=== PATIENT | female | born 1955 ===

== ENCOUNTER 2024-01-02 06:35 | Observation (INO) | payer MEDICARE, OTHER ==
[2024-01-02] MEDS ORDERED: Ondansetron PF 4 MG/2 ML Vial ONE (08:03)
[2024-01-02] MEDS ORDERED: Famotidine/PF 20 mg/2ml Vial ONE (08:04)
[2024-01-02] MEDS ORDERED: Ketorolac Tromethamine 30 MG (1 mL) VIAL ONE (08:04)
[2024-01-02 08:13] LABS: #Monocytes 0.8 10x3/uL (0.0-1.1); %Basophils 0.3 % (0.0-2.0); %Eosinophils 0.1 % (0.0-6.0); %Lymphocytes 8.1 % (18.0-47.0); %Monocytes 7.3 % (0.0-10.0); %Neutrophils 83.9 % (40.0-75.0); Mean Corpuscular HGB CONC 33.3 g/dL (32.0-36.0); Mean Corpuscular Hemoglobin 28.8 pg (27.0-33.0); Mean Corpuscular Volume 86.5 fl (81.6-98.3); Mean Platelet Volume 10.3 fl (7.4-10.4); Platelet Count 283 10x3/uL (150-450); RBC Distribution Width 12.2 % (11.5-14.5); Red Blood Cell (RBC) Count 5.55 10x6/uL (3.90-5.03); White Blood Cell (WBC) Count 10.7 10x3/uL (3.5-10.5)
[2024-01-02 08:29] LABS: ALT (SGPT) 479 U/L (8-55); AST (SGOT) 267 U/L (5-34); Albumin 4.6 g/dL (3.4-4.8); Alkaline Phosphatase 147 U/L (40-110); Anion Gap 17 mmol/L (10-20); BUN (Urea Nitrogen) 13 mg/dL (9.8-20.1); Calc. Creatinine Clearance 0 mL/min (70-130); Calcium 9.6 mg/dL (7.8-10.44); Carbon Dioxide 24 mmol/L (23-31); Chloride 105 mmol/L (98-107); Estimated GFR 85; Globulin 2.6 g/dL (2.4-3.5); Glucose 127 mg/dL (80-115); Potassium 3.9 mmol/L (3.5-5.1); Protein, Total 7.2 g/dL (5.8-8.1); Sodium 142 mmol/L (136-145)
[2024-01-02 09:00] LABS: Lipase 10341 U/L (8-78)
[2024-01-02] MEDS ORDERED: Piperacillin/Tazobactam 4.5 GM VIAL ONE (09:00)
[2024-01-02] MEDS ORDERED: Morphine 4 MG/ML VIAL ONE (09:38)
[2024-01-02] MEDS ORDERED: Ondansetron PF 4 MG/2 ML Vial IVP PRN (09:39)
[2024-01-02] MEDS ORDERED: Ondansetron ODT 4 MG TAB PO PRN (09:39)
[2024-01-02] MEDS ORDERED: Morphine 4 MG/ML VIAL SLOW IVP PRN (09:44)
[2024-01-02 11:21] LABS: Bilirubin Neg (Negative); Blood, Urine Negative (Negative); Clarity Clear (Clear); Glucose, Urine (Dipstick) Normal (Negative); Ketone, Urine 5 mg/dL (Negative); Leukocyte Negative (Negative); Nitrite Negative (Negative); Protein, Urine (Dipstick) Negative (Neg-Trace); Urobilinogen Normal mg/dL (Less than 2)
[2024-01-02 11:31] LABS: Bacteria/HPF Rare-Few HPF (None Seen); CAUTI Indications for Culture Pelvic or flank pain; RBC/HPF None Seen HPF (0-3); Squamous Epithelial 0-3 HPF (0-3); Urine Culture Reflex No No; WBC/HPF 0-3 HPF (0-3)
[2024-01-02] MEDS ORDERED: Piperacillin/Tazobactam 3.375 GM VIAL ONE (13:15)
[2024-01-02] MEDS: Piperacillin/Tazobactam 3.375 GM in Sodium Chloride 0.9% 100 ML IVPB SCH (13:22)
[2024-01-02] MEDS: Sodium Chloride 0.9% 1,000 ML IV SCH ×2 (16:09→16:27)
[2024-01-02 16:11] VITALS: BMI 29.4
[2024-01-02] MEDS: Acetaminophen 325 MG TAB PO PRN (21:04)
[2024-01-02] MEDS: FLU VACC QS2023(65UP)/MF59C/PF 60 MCG/0.5 ML SYRINGE IM ONE (21:17)
[2024-01-03 06:07] LABS: #Eosinphils 0.2 10x3/uL (0.0-0.5); #Monocytes 0.7 10x3/uL (0.0-1.1); #Neutrophils 3.7 10x3/uL (1.5-8.4); %Basophils 0.5 % (0.0-2.0); %Eosinophils 3.6 % (0.0-6.0); %Lymphocytes 25.8 % (18.0-47.0); %Monocytes 11.4 % (0.0-10.0); %Neutrophils 58.4 % (40.0-75.0); Hemoglobin 12.9 g/dL (12.0-15.5); Mean Corpuscular HGB CONC 33.1 g/dL (32.0-36.0); Mean Corpuscular Hemoglobin 28.8 pg (27.0-33.0); Mean Corpuscular Volume 87.1 fl (81.6-98.3); Mean Platelet Volume 10.6 fl (7.4-10.4); Platelet Count 207 10x3/uL (150-450); RBC Distribution Width 12.5 % (11.5-14.5); Red Blood Cell (RBC) Count 4.48 10x6/uL (3.90-5.03); White Blood Cell (WBC) Count 6.4 10x3/uL (3.5-10.5)
[2024-01-03 06:31] LABS: ALT (SGPT) 282 U/L (8-55); AST (SGOT) 96 U/L (5-34); Albumin 3.3 g/dL (3.4-4.8); Alkaline Phosphatase 107 U/L (40-110); Anion Gap 11 mmol/L (10-20); BUN (Urea Nitrogen) 12 mg/dL (9.8-20.1); Bilirubin, Total 1.1 mg/dL (0.2-1.2); Calc. Creatinine Clearance 100 mL/min (70-130); Calcium 8.1 mg/dL (7.8-10.44); Carbon Dioxide 23 mmol/L (23-31); Chloride 114 mmol/L (98-107); Estimated GFR 94; Glucose 84 mg/dL (80-115); Lipase 617 U/L (8-78); Potassium 3.6 mmol/L (3.5-5.1); Protein, Total 5.3 g/dL (5.8-8.1); Sodium 144 mmol/L (136-145)
[2024-01-03] MEDS: Scopolamine 1 mg/72 hour Patch TD SCH (20:31)
[2024-01-04 05:31] LABS: #Eosinphils 0.2 10x3/uL (0.0-0.5); #Monocytes 0.8 10x3/uL (0.0-1.1); #Neutrophils 5.7 10x3/uL (1.5-8.4); %Basophils 0.4 % (0.0-2.0); %Eosinophils 2.8 % (0.0-6.0); %Lymphocytes 16.2 % (18.0-47.0); %Monocytes 9.6 % (0.0-10.0); %Neutrophils 70.4 % (40.0-75.0); Hemoglobin 13.7 g/dL (12.0-15.5); Mean Corpuscular HGB CONC 35.1 g/dL (32.0-36.0); Mean Corpuscular Volume 85.3 fl (81.6-98.3); Mean Platelet Volume 10.2 fl (7.4-10.4); Platelet Count 214 10x3/uL (150-450); RBC Distribution Width 12.5 % (11.5-14.5); Red Blood Cell (RBC) Count 4.57 10x6/uL (3.90-5.03); White Blood Cell (WBC) Count 8.1 10x3/uL (3.5-10.5)
[2024-01-04 05:41] LABS: ALT (SGPT) 212 U/L (8-55); AST (SGOT) 48 U/L (5-34); Albumin 3.5 g/dL (3.4-4.8); Alkaline Phosphatase 110 U/L (40-110); Anion Gap 10 mmol/L (10-20); BUN (Urea Nitrogen) 8 mg/dL (9.8-20.1); Bilirubin, Total 0.9 mg/dL (0.2-1.2); Calc. Creatinine Clearance 113 mL/min (70-130); Calcium 8.2 mg/dL (7.8-10.44); Carbon Dioxide 23 mmol/L (23-31); Chloride 113 mmol/L (98-107); Estimated GFR 96; Globulin 2.1 g/dL (2.4-3.5); Glucose 100 mg/dL (80-115); Lipase 92 U/L (8-78); Potassium 3.2 mmol/L (3.5-5.1); Protein, Total 5.6 g/dL (5.8-8.1); Sodium 143 mmol/L (136-145)
[2024-01-04] MEDS ORDERED: Iopamidol 45 ML ONE (07:50)
[2024-01-04] MEDS ORDERED: SUGAMMADEX SODIUM 200 MG/2 ML VIAL ONE (07:50)
[2024-01-04] MEDS ORDERED: Bupivacaine PF 0.5% 30 ML VIAL ONE (07:50)
[2024-01-04] MEDS ORDERED: Sevoflurane 250 ML INH ANEST BOTTLE ONE (07:51)
[2024-01-04] MEDS ORDERED: Lidocaine 2% PF 5 ML VIAL ONE (08:44)
[2024-01-04] MEDS ORDERED: PROPOFOL 20 ML ONE (08:45)
[2024-01-04] MEDS ORDERED: Fentanyl 250 MCG/5 ML VIAL ONE (08:57)
[2024-01-04] MEDS ORDERED: LATANOPROSTENE BUNOD EA EYE SCH (09:00)
[2024-01-04] MEDS ORDERED: Glucagon 1 MG/ML KIT ONE (10:17)
[2024-01-04] MEDS ORDERED: Ondansetron PF 4 MG/2 ML Vial ONE (10:30)
[2024-01-04] MEDS ORDERED: Dexamethasone 4 mg/ml Vial ONE (10:30)
[2024-01-04] MEDS ORDERED: Iopamidol 300 61% 30 ML VIAL ONE (10:30)
[2024-01-04] MEDS ORDERED: EPINEPHrine 1 MG/ML AMP ONE (10:30)
[2024-01-04] MEDS ORDERED: Ketorolac Tromethamine 30 MG (1 mL) VIAL ONE (10:31)
[2024-01-04] MEDS ORDERED: traMADol HCl 50 MG TAB PO PRN (10:46)
[2024-01-04 12:52] VITALS: BP 104/55; TEMP 98
[2024-01-04] MEDS: Acetaminophen 500 MG TAB PO SCH (13:18)
[2024-01-04] MEDS ORDERED: Ibuprofen 600 MG TAB PO PRN (16:30)
[2024-01-04] MEDS ORDERED: Ketorolac Tromethamine 30 MG (1 mL) VIAL IVP SCH (19:15)
== END 2024-01-04 16:47 | disposition home or self-care (01) ==
LOC: CSHERS 06:35 → CSHERHOLD 09:44 → CSHTELE 15:47
PROVIDERS: ADMIT Family Medicine; ATTEND Family Medicine
PROC: 0FT44ZZ Resection of Gallbladder, Percutaneous Endoscopic Approach (ICD-10-PCS; principal; 2024-01-04)
PROC: BF532Z0 Other Imaging of Gallbladder and Bile Ducts using Fluorescing Agent, Intraoperative (ICD-10-PCS; 2024-01-04)
DX: K80.10 Calculus of gallbladder with chronic cholecystitis without obstruction (principal); K85.10 Biliary acute pancreatitis without necrosis or infection; K76.0 Fatty (change of) liver, not elsewhere classified; K82.8 Other specified diseases of gallbladder; K83.8 Other specified diseases of biliary tract; D72.829 Elevated white blood cell count, unspecified; R94.5 Abnormal results of liver function studies; R74.01 Elevation of levels of liver transaminase levels
CPT/HCPCS: 47532; 47563; 74181; 76705; 80053 ×3; 81001; 83605; 83690 ×3; 83735; 85025 ×3; 87040; 93005; 94760 ×2; 96374; 96375; 96376 ×3; 99285; C1889; G0378 ×4; J1611; 36415; 88304; J0171; J0665; J1100; J1885; J2001; J2270; J2405; J2543; J2704; J3010; J3490; J7050; Q9967; S0028